=== PATIENT | female | born 1955 | race Two or more races ===

== ENCOUNTER 2025-02-10 11:27 | Emergency (ER) | payer OTHER ==
[~2025-02-10] VITALS: Ht 167.6 cm; Wt 82.0 kg
[2025-02-10 11:33] VITALS: O2SAT 100
[2025-02-10 12:47] LABS: PROTHROMBIN TIME 10.5 sec (9.6-11.0)
[2025-02-10 12:51] LABS: CARBON DIOXIDE 26 mEq/L (21-32); CHLORIDE 102 mEq/L (98-107); POTASSIUM 3.8 mEq/L (3.5-5.1); SODIUM 138 mEq/L (136-145)
[2025-02-10 12:52] LABS: CALCIUM 9.3 mg/dL (8.7-10.4)
[2025-02-10 12:54] LABS: HEMATOCRIT. 43.5 % (36.0-48.0); HEMOGLOBIN. 14.2 g/dL (12.0-16.0); MEAN CORPUSCULAR HEMOGLOBIN 29.9 pg (28.0-32.0); MEAN CORPUSCULAR HGB CONC 32.6 g/dL (31.0-37.0); MEAN CORPUSCULAR VOLUME 91.7 fL (81.0-99.0); RED BLOOD CELL COUNT 4.75 mill/uL (4.2-5.4); RED CELL DISTRIBUTION WIDTH 13.8 % (11.6-14.6)
[2025-02-10 12:57] LABS: CREATININE 1.3 mg/dL (0.6-1.0); GLUCOSE 202 mg/dL (70-105); UREA NITROGEN BLOOD 18 mg/dL (9-23)
[2025-02-10 12:58] LABS: TROPONIN I HIGH SENSITIVITY 6 ng/L (3.0-34)
[2025-02-10 13:18] LABS: ETHANOL BLOOD < 10 mg/dL (<10)
[2025-02-10 13:27] LABS: DIFFERENTIAL COMMENT 1
[2025-02-10 14:00] VITALS: BP 163/71; PULSE 74; RESP 18; TEMP 36.8; O2SAT 97
[2025-02-11 16:10] LABS: GIANT PLATELETS FEW
[2025-02-11 16:11] LABS: PLATELET ESTIMATE NORMAL
== END 2025-02-10 14:30 | disposition home or self-care (01) ==
LOC: ER 11:27 → CANBEDREQ 13:54 → ER 14:30
DX: I10 Essential (primary) hypertension (principal); E11.9 Type 2 diabetes mellitus without complications; Z88.1 Allergy status to other antibiotic agents; Z86.73 Personal history of transient ischemic attack (TIA), and cerebral infarction without residual deficits; Z87.440 Personal history of urinary (tract) infections
CPT/HCPCS: 36415; 71045; 80048; 80320; 83880; 84484; 85025; 93005; 99285; G0480